=== PATIENT | male | born 1990 | race Caucasian/White ===

== ENCOUNTER 2016-04-19 00:20 | Emergency (ER) | payer OTHER ==
[2016-04-19] MEDS ORDERED: ACETAMINOPHEN 500 MG TAB PO ONE (00:29)
[2016-04-19 01:11] VITALS: RESP 16
[2016-04-19] MEDS ORDERED: NS 1,000 ML IV ONE (01:28)
--- NOTE | 2016-04-19 02:36 | EDPHY ---
H & P Stated Complaint: Tx for strep throat; 5 days of PCN, now on day 2 of Augmentin ; no steroids Time Seen by Provider: 04/19/16 01:19 HPI/ROS: Chief complaint: sore throat HPI: 26-year-old male presenting with week of sore throat. Patient was seen by his primary care physician last Saturday, had a positive rapid strep test was started on antibiotics. Patient states he has been taking antibiotics but is not improving. Is continuing to complain of sore throat and pain in his neck. Also complaining of glands being swollen. Patient states that he was diagnosed and treated for strep throat in February and had a rapid strep at that time as well. Denies any nausea or vomiting. Has had some fevers and chills. No chest pain or shortness of breath. ROS: 10 point Review of Systems is negative except as noted in the HPI. Past medical history: Strep throat Allergies: Erythromycin Physical exam: Gen: Awake, Alert, No Distress HEENT: Nose: no rhinorrhea Eyes: PERRLA, EOMI Mouth: Moist mucosa diffuse pharyngeal erythema and exudate. No peritonsillar swelling, uvula is midline Neck: Supple, no JVD, positive anterior cervical lymphadenopathy and supraclavicular lymphadenopathy Chest: nontender, lungs clear to auscultation Heart: S1, S2 normal, no murmur Abd: Soft, non-tender, no guarding, no splenomegaly Back: no CVA tenderness, no midline tenderness Ext: no edema, non-tender Skin: no rash Neuro: CN II-XII intact, Sensation grossly intact, Strength 5/5 in bilateral upper and lower extremities - Personal History Current Tetanus/Diphtheria Vaccine: Yes Current Tetanus Diphtheria and Acellular Pertussis (TDAP): Yes Tetanus Vaccine Date: 2013 - Medical/Surgical History Hx Asthma: No Hx Chronic Respiratory Disease: No Hx Diabetes: No Hx Cardiac Disease: No Hx Renal Disease: No Hx Cirrhosis: No Hx Alcoholism: No Hx HIV/AIDS: No Hx Splenectomy or Spleen Trauma: No Other PMH: no PMH. no PSH - Social History Smoking Status: Never smoked Constitutional: Initial Vital Signs Temperature (C) 38.5 C H 04/19/16 00:26 Heart Rate 98 04/19/16 00:26 Respiratory Rate 14 04/19/16 00:26 Blood Pressure 119/74 04/19/16 00:26 O2 Sat (%) 94 04/19/16 00:26 O2 Delivery Mode Room Air Allergies/Adverse Reactions: erythromycin base Allergy (Verified 04/19/16 00:26) Home Medications: Medication Instructions Recorded Augmentin 875 MG TAB (*) 04/19/16 Medical Decision Making ED Course/Re-evaluation: Patient currently being treated with strep pharyngitis is without improvement. He did have a rapid strep in February. He does have significant lymphadenopathy and pharyngitis. I wonder if this was more consistent with a mononucleosis. Monospot is been sent Monospot positive. Patient has been instructed continues antibiotics. He has been given Decadron here. Will follow up with primary care physician for re- evaluation in a few days if he is not improving. - Data Points Laboratory Results: 04/19/16 01:35 Monoscreen POSITIVE H (NEGATIVE) Medications Given: Discontinued Medications Acetaminophen (Tylenol) 1,000 mg PO EDNOW ONE Stop: 04/19/16 00:30 Last Admin: 04/19/16 00:32 Dose: 1,000 mg Dexamethasone (Decadron) 10 mg PO EDNOW ONE Stop: 04/19/16 02:45 Last Admin: 04/19/16 02:52 Dose: 10 mg Sodium Chloride (Ns) 1,000 mls @ 0 mls/hr IV ONCE ONE PRN Reason: Wide Open Stop: 04/19/16 01:29 Last Admin: 04/19/16 01:35 Dose: 1,000 mls Departure - Departure Disposition: Home, Routine, Self-Care Clinical Impression: Mononucleosis Condition: Good Instructions: Mononucleosis (ED) Additional Instructions: He may take ibuprofen and acetaminophen for pain. Do not engage in any sporting activity until your cleared by her primary care doctor. Take the full course of antibiotics that were started on last week. Return to the emergency depart for increasing pain, fevers, chills, or any other concerns. Referrals: [facility] [Other] - As per Instructions
[2016-04-19] MEDS ORDERED: DEXAMETHASONE 4 MG TAB PO ONE (02:44)
[2016-04-19 03:18] VITALS: BP 121/71; PULSE 78; TEMP 98.8; O2SAT 97
== END 2016-04-19 03:18 | disposition home or self-care (01) ==
DX: B27.90 Infectious mononucleosis, unspecified without complication (principal)

== ENCOUNTER 2016-04-21 09:21 | Emergency (ER) | payer OTHER ==
[2016-04-21 09:26] VITALS: RESP 16; TEMP 98.2; O2SAT 95
[2016-04-21] MEDS ORDERED: BENZOCAINE UNIT DOSE SPRAY HURRICAINE MM ONE (09:45)
--- NOTE | 2016-04-21 09:54 | EDPHY ---
H & P Smoking Status: Never smoked Time Seen by Provider: 04/21/16 09:40 HPI/ROS: CHIEF COMPLAINT: Worsening sore throat HISTORY OF PRESENT ILLNESS: 26-year-old immunocompetent male seen in the ER 2 days ago diagnosis strep pharyngitis and mononucleosis, started on Augmentin, given dose of Decadron, returns to the ER complaining of worsening sore throat, trismus. No fever or chills. No nuchal rigidity. No nausea or vomiting. No chest pain. No cough. No back or flank pain. No abdominal pain. No rash REVIEW OF SYSTEMS: A ten point review of systems was performed and is negative with the exception of the items mentioned in the HPI PAST MEDICAL & SURGICAL HISTORY: No pertinent medical or surgical history SOCIAL HISTORY: nonsmoker PHYSICAL EXAM (Prior to examination, patient consented to physical exam, hands were washed and my usual and customary physical exam procedures followed) 1) GENERAL: Well-developed, well-nourished, alert and oriented. Appears to be in no acute distress. 2) HEAD: Normocephalic, atraumatic 3) HEENT: Pupils equal, round, reactive to light bilaterally. Sclera anicteric. Oropharynx: Bilateral tonsils are enlarged with white exudate. Tonsils are symmetrical. No pointing of the uvula. Uvula is enlarged. No trismus or drooling. No hot potato voice. No evidence of peritonsillar abscess. Ears bilaterally with normal tympanic membranes. 4) NECK: Full range of motion, no meningeal signs. 5) LUNGS: Clear auscultation bilaterally, no wheezes, no rhonchi, no retractions. 6) HEART: Regular rate and rhythm, no murmur, no heave, no gallop. 7) ABDOMEN: No guarding, no rebound, no focal tenderness, negative McBurney's, negative Arthur's, negative Rovsing's, negative peritoneal sign, 8) MUSCULOSKELETAL: Moving all extremities, no focal areas of tenderness, no obvious trauma. No peripheral edema or discoloration. 9) BACK: No CVA tenderness, no midline vertebral tenderness, no fluctuance, no step-off, no obvious trauma, no visual or palpable abnormality. 10) SKIN: No rash, no petechiae. 11) Psychiatric: Patient is oriented X 3, there is no agitation. DIFFERENTIAL DIAGNOSIS: no particular include but limited to retropharyngeal abscess, peritonsillar abscess, uvulitis (Reddy Aviles) Constitutional: Initial Vital Signs Temperature (C) 36.8 C 04/21/16 09:23 Heart Rate 86 04/21/16 09:23 Respiratory Rate 16 04/21/16 09:23 Blood Pressure 106/70 04/21/16 09:23 O2 Sat (%) 95 04/21/16 09:23 O2 Delivery Mode Room Air Allergies/Adverse Reactions: erythromycin base Allergy (Unknown, Verified 04/21/16 09:22) Home Medications: Medication Instructions Recorded Augmentin 875 MG TAB (*) 04/19/16 Clindamycin HCl [Clindamycin] 300 mg PO TID 7 Days 04/21/16 methylPREDNISolone [Medrol Dose 4 mg PO DAILY #1 ea 04/21/16 Mike] MDM/Departure - MDM Medications Given: Discontinued Medications Benzocaine (Hurricaine [place]) 1 each MM EDNOW ONE Stop: 04/21/16 09:46 Last Admin: 04/21/16 10:05 Dose: 1 each Benzocaine (Hurricaine [place]) 1 g MM EDNOW ONE Stop: 04/21/16 10:31 Last Admin: 04/21/16 10:26 Dose: 1 spray ED Course/Re-evaluation: Patient was also seen And examined by Dr. Marcelina Alcantara. Doubt peritonsillar abscess. He has enlargement of his uvula. Phone consultation with Dr. Kayla Burgos at 11:55 a.m. recommend switching the patient clindamycin in Medrol Dosepak and having follow up on Saturday in her office (today is Saturday). Discussed the patient. He is comfortable this plan. In the meantime usual and customary pharyngitis precautions instructions provided. (Reddy Aviles) I have evaluated and participated in the management of this patient. My co- signature indicates that I have reviewed this chart and that I agree with the findings and the plan of care as documented. My personal history and physical findings include: Currently on Augmentin after diagnosis of mononucleosis and strep pharyngitis with subjective worsening of symptoms. He has noticed swelling in the back of his throat along with continued sore throat, making it difficult for him to swallow. He has been able to eat and drink and remain hydrated. On examination his oropharynx has symmetric tonsillar enlargement with exudate and uvular edema. No other intraoral lesions. No swelling on the floor of the mouth. No trismus. No drooling. He has cervical lymphadenopathy. His trachea is midline. Lungs are clear. Heart is regular. This patient does not appear toxic. He is well hydrated. He is not febrile in the department. After consultation with Dr. Kayla Burgos he is being switched to clindamycin. He has been given a Medrol Dosepak. He is comfortable with this plan. He will follow up with Dr. Burgos day after tomorrow. (Marcelina Alcantara) - Depart Disposition: Home, Routine, Self-Care Clinical Impression: Acute streptococcal pharyngitis, Mononucleosis Condition: Good Instructions: Mononucleosis (ED), Strep Throat (ED) Additional Instructions: Return to the ER immediately if you cannot swallow, have drooling, fevers, neck stiffness, cannot open your jaw, or any other symptoms that concern you. Stand Alone Forms: School Excuse, Work Excuse Prescriptions: Clindamycin HCl [Clindamycin] 300 mg PO TID 7 Days methylPREDNISolone [Medrol Dose Mike] 4 mg PO DAILY #1 ea Referrals: Kayla Burgos MD [Medical Doctor] - 04/23/16
[2016-04-21] MEDS ORDERED: BENZOCAINE 57 G CAN HURRICAINE MM ONE (10:30)
[2016-04-21 12:10] VITALS: BP 134/90; PULSE 80
== END 2016-04-21 12:10 | disposition home or self-care (01) ==
DX: J02.0 Streptococcal pharyngitis (principal); B27.90 Infectious mononucleosis, unspecified without complication